=== PATIENT | male | born 1990 | race African-American/Black ===

== ENCOUNTER 2016-07-26 19:02 | Emergency (ER) | payer SELFPAY ==
[~2016-07-26] VITALS: Ht 177.8 cm; Wt 78.0 kg
[2016-07-26 23:39] VITALS: BP 131/79
== END 2016-07-26 23:39 | disposition home or self-care (01) ==
LOC: ER 19:02
DX: S49.81XA Other specified injuries of right shoulder and upper arm, initial encounter (principal); F12.10 Cannabis abuse, uncomplicated; X50.9XXA Other and unspecified overexertion or strenuous movements or postures, initial encounter; Y93.89 Activity, other specified; Y92.89 Other specified places as the place of occurrence of the external cause; Y99.8 Other external cause status
CPT/HCPCS: 99282

== ENCOUNTER 2020-12-13 03:40 | Emergency (ER) | payer SELFPAY ==
[~2020-12-13] VITALS: Ht 180.3 cm; Wt 75.0 kg
[2020-12-13 05:10] VITALS: BP 121/74
== END 2020-12-13 05:17 | disposition home or self-care (01) ==
LOC: ER 03:40
DX: S63.636A Sprain of interphalangeal joint of right little finger, initial encounter (principal); F12.10 Cannabis abuse, uncomplicated; V29.88XA Motorcycle rider (driver) (passenger) injured in other specified transport accidents, initial encounter; Y93.89 Activity, other specified; Y92.89 Other specified places as the place of occurrence of the external cause; Y99.8 Other external cause status
CPT/HCPCS: 29130; 73130; 99283

== ENCOUNTER 2021-11-13 07:29 | Emergency (ER) | payer SELFPAY ==
[~2021-11-13] VITALS: Ht 180.3 cm; Wt 76.0 kg
[2021-11-13 07:46] VITALS: BP 130/80
[2021-11-13] MEDS ORDERED: LIDOCAINE HCL/EPINEPHRINE 1%-EPI 1:100,000 10 ML VIAL INFIL NR (08:15)
[2021-11-13] MEDS ORDERED: LIDOCAINE HCL/EPINEPHRINE 1%-EPI 1:100,000 20 ML VIAL INFIL ONE (08:15)
[2021-11-13] MEDS ORDERED: CEPHALEXIN 250MG CAPSULE PO ONE (08:15)
[2021-11-13] MEDS ORDERED: ACETAMINOPHEN 325MG TABLET PO ONE (08:15)
[2021-11-13] MEDS ORDERED: BACITRACIN ZINC OINT UDPKT TOP ONE ×2 (08:15)
[2021-11-13] MEDS ORDERED: CEPHALEXIN 250MG CAPSULE PO NR (11:00)
[2021-11-13] MEDS ORDERED: LIDOCAINE HCL/EPINEPHRINE 1%-EPI 1:100,000 50 ML VIAL INFIL ONE (11:15)
[2021-11-13] MEDS ORDERED: ACET-3163 MT (11:16)
[2021-11-13] MEDS ORDERED: IBUP-2029 MT (11:16)
[2021-11-13] MEDS ORDERED: CEPH500C2 MT (11:16)
== END 2021-11-13 11:58 | disposition home or self-care (01) ==
LOC: ER 07:45
DX: S81.021A Laceration with foreign body, right knee, initial encounter (principal); S62.111A Displaced fracture of triquetrum [cuneiform] bone, right wrist, initial encounter for closed fracture; S61.210A Laceration without foreign body of right index finger without damage to nail, initial encounter; S50.311A Abrasion of right elbow, initial encounter; S50.811A Abrasion of right forearm, initial encounter; S80.212A Abrasion, left knee, initial encounter; M79.641 Pain in right hand; Y93.01 Activity, walking, marching and hiking; W15.XXXA Fall from cliff, initial encounter; Y92.828 Other wilderness area as the place of occurrence of the external cause
CPT/HCPCS: 12005; 73080; 73090; 73130; 73562; 73700; 99284; J3490; L1830; Z7610